=== PATIENT | male | born 1940 | race Caucasian/White ===

== ENCOUNTER 2022-11-21 09:37 | Inpatient (IN) | payer OTHER ==
[~2022-11-21] VITALS: Ht 175.3 cm; Wt 90.7 kg
[2022-11-21 09:45] VITALS: BP_SYST 144; PULSE 85; RESP 18; TEMP 98.3; O2SAT 94
[2022-11-21] MEDS ORDERED: METF-379 PO (10:00)
[2022-11-21] MEDS ORDERED: CILO100T3 PO (10:00)
[2022-11-21] MEDS ORDERED: AZIL40TA PO (10:00)
[2022-11-21] MEDS ORDERED: RIVA20TA PO (10:00)
[2022-11-21] MEDS ORDERED: LIP40 PO (10:00)
[2022-11-21 10:43] LABS: BASOPHILS % (AUTO) 0.5 % (0.0-2.0); EOSINOPHILS # (AUTO) 0.1 K/uL (0.0-0.4); EOSINOPHILS % (AUTO) 1.9 % (0.0-4.0); HEMATOCRIT 40.8 % (36-54); HEMOGLOBIN 13.6 g/dL (14.0-18.0); LYMPHOCYTES # (AUTO) 1.4 K/uL (1.0-5.5); LYMPHOCYTES % (AUTO) 22.6 % (20.5-51.5); MEAN CORPUSCULAR HEMOGLOBIN 31 pg (27-31); MEAN CORPUSCULAR HGB CONC 33 % (32-36); MEAN CORPUSCULAR VOLUME 92 fL (79.0-98.0); MONOCYTES # (AUTO) 0.6 K/uL (0.0-1.0); MONOCYTES % (AUTO) 10.2 % (1.7-9.3); NEUTROPHILS # (AUTO) 4.1 K/uL (1.8-7.7); NEUTROPHILS % (AUTO) 64.8 % (40.0-70.0); PLATELET COUNT (AUTO) 159 K/uL (130-430); RED BLOOD CELL COUNT(AUTO) 4.45 MIL/uL (4.2-6.2); RED CELL DISTRIBUTION WIDTH 14.2 % (9.0-15.0); WHITE BLOOD COUNT (AUTO) 6.3 K/uL (4.8-10.8)
[2022-11-21 11:02] LABS: INR 1.4 (0.80-1.20); PROTHROMBIN TIME 13.9 SECS (9.5-12.5)
[2022-11-21 11:11] LABS: COLOR,URINE YELLOW (YELLOW)
[2022-11-21 11:12] LABS: BILIRUBIN,URINE NEGATIVE (NEGATIVE); BLOOD, URINE TRACE (NEGATIVE); CLARITY/URINE CLEAR (CLEAR); GLUCOSE,URINE NEGATIVE (NEGATIVE); KETONES,URINE NEGATIVE (NEGATIVE); LEUKOCYTE ESTERASE ,URINE NEGATIVE (NEGATIVE); NITRITE, URINE NEGATIVE (NEGATIVE); PH,URINE 5.5 (5.0-8.0); PROTEIN URINE NEGATIVE (NEGATIVE); UROBILINOGEN,URINE 0.2 (0.2-1.0)
[2022-11-21 11:14] LABS: ALANINE AMINOTRANSFERASE 30 U/L (12-78); ALBUMIN 3.7 g/dL (3.4-4.8); ANION GAP 5 (5-15); ASPARTATE AMINOTRANSFERASE 21 U/L (10-37); CALCIUM 9.2 mg/dL (8.4-11.0); CARBON DIOXIDE 26 mmol/L (23-29); CHLORIDE 106 mmol/L (98-107); CREATINE KINASE, TOTAL 95 U/L (39-308); FREE T4 (FREE THYROXINE) 0.8 ng/dL (0.6-1.6); GLUCOSE 125 mg/dL (74-106); SODIUM SERUM 137 mmol/L (136-145); THYROID STIMULATING HORMONE 2.42 uIu/mL (0.34-4.82); TOTAL BILIRUBIN 1.1 mg/dL (0.0-1.0); TOTAL PROTEIN, SERUM 6.7 g/dL (6.4-8.3); UREA NITROGEN, BLOOD 32 mg/dL (8-21)
[2022-11-21 11:18] LABS: POTASSIUM 6.1 mmol/L (3.5-5.1)
[2022-11-21 11:23] LABS: BACTERIA,URINE None Seen /HPF (None Seen); CALCIUM OXALATE CRYSTALS,UR None Seen /HPF (None Seen); CALCIUM PHOSPHATE CRYSTALS,UR None Seen /HPF (None Seen); COARSE GRANULAR CASTS,URINE None Seen /LPF (None Seen); FINE GRANULAR CASTS,URINE None Seen /LPF (None Seen); HYALINE CASTS, URINE None Seen /LPF (None Seen); MUCUS,URINE None Seen /LPF (None Seen); OTHER CASTS, URINE None Seen /LPF (None Seen); OTHER CRYSTALS,URINE None Seen /HPF (None Seen); RBC,URINE NONE SEEN /HPF (0-3); TRICHOMONAS,URINE None Seen /HPF (None Seen); TRIPLE PHOSPHATE CRYSTAL,UR None Seen /HPF (None Seen); URIC ACID CRYSTALS,URINE None Seen /HPF (None Seen); URINE AMORPHOUS PHOSPHATES None Seen /HPF (None Seen); URINE AMORPHOUS URATE None Seen /HPF (None Seen); WAXY CASTS,URINE None Seen /LPF (None Seen); WBC,URINE NONE SEEN /HPF (0-3); YEAST,URINE None Seen /HPF (None Seen)
[2022-11-21 11:38] LABS: ACETONE, SERUM NEGATIVE (NEGATIVE)
[2022-11-21] MEDS ORDERED: NACL 0.9% 1,000 ML IV ONE (11:45)
[2022-11-21] MEDS: D5/0.45 NS 1,000 ML IV SCH (15:34)
[2022-11-21] MEDS ORDERED: ONDANSETRON HCL 4 MG/2 ML VIAL IVP PRN (16:00)
[2022-11-21] MEDS ORDERED: NALOXONE HCL 0.4 MG/ML AMP (NARCAN) IVP PRN ×2 (16:00)
[2022-11-21] MEDS ORDERED: HYDROcodone/ACETAMIN 5-325 MG TAB (NORCO/ VICODIN) PO PRN (16:00)
[2022-11-21] MEDS ORDERED: LORazepam 2 MG/ML VIAL IVP PRN (16:00)
[2022-11-21] MEDS ORDERED: ACETAMINOPHEN 325 MG TABLET PO PRN ×2 (16:00)
[2022-11-21] MEDS ORDERED: HYDROcodone/ACETAMIN 10-325 MG TAB PO PRN (16:00)
[2022-11-21 16:19] VITALS: BP_SYST 125; PULSE 89; RESP 18; TEMP 96.8
[2022-11-21 16:33] VITALS: O2SAT 96
[2022-11-21] MEDS: INSULIN REGULAR, HUMAN 100 UNITS/ML, 3 ML VIAL (humuLIN R) SUBCUT PRN (16:53)
[2022-11-21 20:00] VITALS: BP_SYST 123; PULSE 112; PULSE 85; RESP 16; TEMP 98.1; O2SAT 95
[2022-11-21] MEDS: CILOSTAZOL 50 MG TABLET (PLETAL) PO SCH (20:50)
[2022-11-21] MEDS: ATORVASTATIN 20 MG TABLET PO SCH (20:50)
[2022-11-21] MEDS ORDERED: SODIUM POLYSTYRENE SULFONATE 15 GM/60 ML UDBTL PO ONE (22:15)
[2022-11-22] VITALS (8 sets, daily range): BP systolic 99–127; PULSE 65–86; RESP 14–18; TEMP 96.7–98; O2SAT 94–97
[2022-11-22] MEDS: D5/0.45 NS 1,000 ML IV SCH ×3 (01:00→20:41)
[2022-11-22 05:47] LABS: ALANINE AMINOTRANSFERASE 25 U/L (12-78); ALBUMIN 3.5 g/dL (3.4-4.8); ANION GAP 8 (5-15); ASPARTATE AMINOTRANSFERASE 19 U/L (10-37); CALCIUM 8.5 mg/dL (8.4-11.0); CARBON DIOXIDE 23 mmol/L (23-29); CHLORIDE 107 mmol/L (98-107); CREATININE 1.04 mg/dL (0.55-1.30); GLUCOSE 122 mg/dL (74-106); POTASSIUM 4.8 mmol/L (3.5-5.1); SODIUM SERUM 138 mmol/L (136-145); TOTAL BILIRUBIN 1.1 mg/dL (0.0-1.0); TOTAL PROTEIN, SERUM 6.2 g/dL (6.4-8.3); UREA NITROGEN, BLOOD 25 mg/dL (8-21)
[2022-11-22 06:09] LABS: BASOPHILS % (AUTO) 0.4 % (0.0-2.0); EOSINOPHILS # (AUTO) 0.1 K/uL (0.0-0.4); EOSINOPHILS % (AUTO) 1.9 % (0.0-4.0); HEMATOCRIT 40.1 % (36-54); HEMOGLOBIN 13.4 g/dL (14.0-18.0); LYMPHOCYTES % (AUTO) 28.5 % (20.5-51.5); MEAN CORPUSCULAR HEMOGLOBIN 30 pg (27-31); MEAN CORPUSCULAR HGB CONC 33 % (32-36); MEAN CORPUSCULAR VOLUME 91 fL (79.0-98.0); MONOCYTES # (AUTO) 0.7 K/uL (0.0-1.0); MONOCYTES % (AUTO) 9.5 % (1.7-9.3); NEUTROPHILS # (AUTO) 4.3 K/uL (1.8-7.7); NEUTROPHILS % (AUTO) 59.7 % (40.0-70.0); PLATELET COUNT (AUTO) 168 K/uL (130-430); RED BLOOD CELL COUNT(AUTO) 4.41 MIL/uL (4.2-6.2); RED CELL DISTRIBUTION WIDTH 14.4 % (9.0-15.0); WHITE BLOOD COUNT (AUTO) 7.2 K/uL (4.8-10.8)
[2022-11-22] MEDS ORDERED: DIATR MEGLU/DIATRIZ SOD 30 ML SOLUTION PO ONE (07:29)
[2022-11-22] MEDS: CILOSTAZOL 50 MG TABLET (PLETAL) PO SCH ×2 (08:49→20:41)
[2022-11-22] MEDS: LOSARTAN POTASSIUM 50 MG TABLET (COZAAR) PO SCH (08:50)
[2022-11-22] MEDS ORDERED: AZILSARTAN MEDOXOMIL 40 MG PO SCH (09:00)
[2022-11-22] MEDS: INSULIN REGULAR, HUMAN 100 UNITS/ML, 3 ML VIAL (humuLIN R) SUBCUT PRN ×2 (11:33→20:43)
[2022-11-22] MEDS ORDERED: RIVAROXABAN 10 MG TABLET PO SCH (18:00)
[2022-11-22] MEDS ORDERED: ZOLPIDEM TARTRATE 5 MG TABLET PO PRN (19:30)
[2022-11-22] MEDS: ATORVASTATIN 20 MG TABLET PO SCH (20:41)
[2022-11-23] VITALS: BP_SYST 124; PULSE 80; RESP 16; TEMP 97.5; O2SAT 95
[2022-11-23] MEDS: D5/0.45 NS 1,000 ML IV SCH (05:00)
[2022-11-23] MEDS: INSULIN REGULAR, HUMAN 100 UNITS/ML, 3 ML VIAL (humuLIN R) SUBCUT PRN ×2 (06:48→11:37)
[2022-11-23 07:16] LABS: BASOPHILS % (AUTO) 0.4 % (0.0-2.0); EOSINOPHILS # (AUTO) 0.2 K/uL (0.0-0.4); EOSINOPHILS % (AUTO) 2.6 % (0.0-4.0); HEMATOCRIT 36.1 % (36-54); HEMOGLOBIN 12.4 g/dL (14.0-18.0); LYMPHOCYTES # (AUTO) 1.6 K/uL (1.0-5.5); LYMPHOCYTES % (AUTO) 22.6 % (20.5-51.5); MEAN CORPUSCULAR HEMOGLOBIN 32 pg (27-31); MEAN CORPUSCULAR HGB CONC 34 % (32-36); MEAN CORPUSCULAR VOLUME 92 fL (79.0-98.0); MONOCYTES # (AUTO) 0.7 K/uL (0.0-1.0); MONOCYTES % (AUTO) 9.6 % (1.7-9.3); NEUTROPHILS # (AUTO) 4.5 K/uL (1.8-7.7); NEUTROPHILS % (AUTO) 64.8 % (40.0-70.0); PLATELET COUNT (AUTO) 161 K/uL (130-430); RED BLOOD CELL COUNT(AUTO) 3.94 MIL/uL (4.2-6.2); RED CELL DISTRIBUTION WIDTH 14.2 % (9.0-15.0); WHITE BLOOD COUNT (AUTO) 6.9 K/uL (4.8-10.8)
[2022-11-23 07:30] VITALS: O2SAT 94
[2022-11-23 07:50] LABS: ANION GAP 5 (5-15); CALCIUM 8.3 mg/dL (8.4-11.0); CARBON DIOXIDE 24 mmol/L (23-29); CHLORIDE 106 mmol/L (98-107); CREATININE 1.19 mg/dL (0.55-1.30); GLUCOSE 156 mg/dL (74-106); POTASSIUM 4.8 mmol/L (3.5-5.1); SODIUM SERUM 135 mmol/L (136-145); UREA NITROGEN, BLOOD 31 mg/dL (8-21)
[2022-11-23 08:31] VITALS: BP_SYST 130; PULSE 86; RESP 18; TEMP 98.4; O2SAT 94
[2022-11-23] MEDS: LOSARTAN POTASSIUM 50 MG TABLET (COZAAR) PO SCH (09:03)
[2022-11-23] MEDS: CILOSTAZOL 50 MG TABLET (PLETAL) PO SCH (09:03)
[2022-11-23] MEDS ORDERED: L.RH1CAP PO (10:43)
[2022-11-23] MEDS ORDERED: ZOLP5TAB2 PO (10:43)
[2022-11-23] MEDS ORDERED: METF-1069 PO (10:43)
[2022-11-23 11:38] VITALS: BP_SYST 122; PULSE 83; RESP 18; TEMP 98.2; O2SAT 94
[2022-11-23 11:44] VITALS: BP_SYST 135; PULSE 86; RESP 18; TEMP 98.4; O2SAT 94
== END 2022-11-23 13:30 | disposition home or self-care (01) | DRG 394 ==
LOC: SED 09:37 → STU 11:53 → SMU 11-22 17:27
PROVIDERS: ADMIT Preventive Medicine Preventive Medicine/Occupational Environmental Medicine; ATTEND Preventive Medicine Preventive Medicine/Occupational Environmental Medicine
DX: K52.1 Toxic gastroenteritis and colitis (principal); R65.10 Systemic inflammatory response syndrome (SIRS) of non-infectious origin without acute organ dysfunction; E86.0 Dehydration; K80.20 Calculus of gallbladder without cholecystitis without obstruction; E87.5 Hyperkalemia; K57.30 Diverticulosis of large intestine without perforation or abscess without bleeding; E11.65 Type 2 diabetes mellitus with hyperglycemia; E80.6 Other disorders of bilirubin metabolism; I10 Essential (primary) hypertension; E78.5 Hyperlipidemia, unspecified; R79.89 Other specified abnormal findings of blood chemistry; Z86.73 Personal history of transient ischemic attack (TIA), and cerebral infarction without residual deficits; Z95.0 Presence of cardiac pacemaker; Z79.899 Other long term (current) drug therapy; Z79.01 Long term (current) use of anticoagulants; T50.905A Adverse effect of unspecified drugs, medicaments and biological substances, initial encounter
CPT/HCPCS: 36415; 70450-TC; 71045; 76376; 80048; 80053; 81000; 82009; 82550; 82962; 83605; 83735; 84100; 84439; 84443; 84484; 85025; 85610-TC; 85730-TC; 87045-TC; 87046; 87177; 93005; 97116-GP; 97163-GP; 99285; G0378; J1815; J7030; Q9964

== ENCOUNTER 2023-11-25 17:07 | Inpatient (IN) | payer OTHER ==
[~2023-11-25] VITALS: Ht 180.3 cm; Wt 95.3 kg
[~2023-11-25 17:07] MED LIST: AZIL40TA PO; CILO100T3 PO; L.RH1CAP PO; LIP40 PO; METF-1069 PO; RIVA20TA PO; ZOLP5TAB2 PO
[2023-11-25 17:16] VITALS: BP_SYST 125; PULSE 86; RESP 22; TEMP 96.5; O2SAT 96
[2023-11-25 18:19] LABS: BASOPHILS % (AUTO) 0.7 % (0.0-2.0); EOSINOPHILS # (AUTO) 0.1 K/uL (0.0-0.4); EOSINOPHILS % (AUTO) 1.9 % (0.0-4.0); HEMATOCRIT 38.7 % (36-54); HEMOGLOBIN 13.8 g/dL (14.0-18.0); LYMPHOCYTES # (AUTO) 1.3 K/uL (1.0-5.5); LYMPHOCYTES % (AUTO) 24.2 % (20.5-51.5); MEAN CORPUSCULAR HEMOGLOBIN 34 pg (27-31); MEAN CORPUSCULAR HGB CONC 36 % (32-36); MEAN CORPUSCULAR VOLUME 94 fL (79.0-98.0); MONOCYTES # (AUTO) 0.5 K/uL (0.0-1.0); MONOCYTES % (AUTO) 9.7 % (1.7-9.3); NEUTROPHILS # (AUTO) 3.4 K/uL (1.8-7.7); NEUTROPHILS % (AUTO) 63.5 % (40.0-70.0); PLATELET COUNT (AUTO) 157 K/uL (130-430); RED BLOOD CELL COUNT(AUTO) 4.11 MIL/uL (4.2-6.2); RED CELL DISTRIBUTION WIDTH 14.2 % (9.0-15.0); WHITE BLOOD COUNT (AUTO) 5.4 K/uL (4.8-10.8)
[2023-11-25 18:38] LABS: ANION GAP 9 (5-15); CALCIUM 8.9 mg/dL (8.4-11.0); CARBON DIOXIDE 26 mmol/L (23-29); CHLORIDE 107 mmol/L (98-107); CREATININE 1.14 mg/dL (0.55-1.30); DIGOXIN 0.4 ng/mL (0.80-2.00); GLUCOSE 142 mg/dL (74-106); SODIUM SERUM 142 mmol/L (136-145); UREA NITROGEN, BLOOD 22 mg/dL (8-21)
[2023-11-25 19:36] LABS: COVID19 ANTIGEN SOFIA FIA NEGATIVE (NEGATIVE)
[2023-11-25 19:38] LABS: INFLUENZA TYPE A Negative (NEGATIVE); INFLUENZA TYPE B NEGATIVE (NEGATIVE)
[2023-11-25] MEDS: FUROSEMIDE 40 MG/4 ML VIAL IVP ONE (20:00)
[2023-11-25] MEDS: DIGOXIN 0.5 MG/2 ML AMP IVP ONE (20:00)
[2023-11-25] MEDS ORDERED: CHOL1CAP15 (20:06)
[2023-11-25] MEDS ORDERED: POTA-197 PO (20:06)
[2023-11-25] MEDS ORDERED: BUME0.5T6 PO (20:06)
[2023-11-25] MEDS ORDERED: EMPA25TA PO (20:06)
[2023-11-25] MEDS ORDERED: ZOLP10TA2 PO (20:06)
[2023-11-25] MEDS ORDERED: METO50TA7 PO (20:06)
[2023-11-25] MEDS ORDERED: DIGO125T PO (20:06)
[2023-11-25] MEDS ORDERED: HYDR-3927 PO (20:06)
[2023-11-25] MEDS ORDERED: VERI2.5T (20:06)
[2023-11-25] MEDS ORDERED: MORPHINE 2 MG/ML INJ. SYRINGE IVP PRN ×2 (20:30)
[2023-11-25] MEDS ORDERED: POTASSIUM CHLORIDE 20 MEQ TABLET.ER PO PRN (20:30)
[2023-11-25] MEDS ORDERED: DOCUSATE SODIUM 100 MG CAPSULE PO PRN (20:30)
[2023-11-25] MEDS ORDERED: ONDANSETRON HCL 4 MG/2 ML VIAL IVP PRN (20:30)
[2023-11-25] MEDS ORDERED: MAGNESIUM SULFATE 50 ML IV PRN (20:30)
[2023-11-25] MEDS ORDERED: ACETAMINOPHEN 325 MG TABLET PO PRN (20:30)
[2023-11-25] MEDS ORDERED: MUPIROCIN 2% TOPICAL OINTMENT 22 GM NS PRN (20:30)
[2023-11-25 21:55] VITALS: BP_SYST 118; PULSE 86; RESP 18; TEMP 97.6; O2SAT 96
[2023-11-25 22:00] VITALS: O2SAT 96
[2023-11-25] MEDS: HEPARIN SODIUM,PORCINE 5,000 UNITS/ML VIAL SUBCUT SCH (22:42)
[2023-11-25 23:05] VITALS: BP_SYST 118; PULSE 85; RESP 16; TEMP 97.6; O2SAT 97
[2023-11-26 00:17] VITALS: BP_SYST 122; PULSE 85; RESP 18; TEMP 98; O2SAT 95
[2023-11-26 04:36] VITALS: BP_SYST 129; PULSE 85; RESP 16; TEMP 97.5; O2SAT 96
[2023-11-26 07:54] LABS: ANION GAP 8 (5-15); CALCIUM 9.2 mg/dL (8.4-11.0); CARBON DIOXIDE 27 mmol/L (23-29); CHLORIDE 105 mmol/L (98-107); CREATININE 1.18 mg/dL (0.55-1.30); GLUCOSE 150 mg/dL (74-106); POTASSIUM 5.1 mmol/L (3.5-5.1); SODIUM SERUM 140 mmol/L (136-145); UREA NITROGEN, BLOOD 21 mg/dL (8-21)
[2023-11-26 08:00] VITALS: BP_SYST 120; PULSE 51; PULSE 87; RESP 16; TEMP 97.3; O2SAT 98
[2023-11-26 08:57] LABS: CHOLESTEROL 190 mg/dL (<200); HDL CHOLESTEROL 48 mg/dL (>45); LIPASE 75 U/L (16-77); TRIGLYCERIDES 97 mg/dL (30-150)
[2023-11-26] MEDS: ATORVASTATIN 20 MG TABLET PO SCH (09:41)
[2023-11-26] MEDS: METOPROLOL SUCCINATE 50 MG TAB.SR.24H (TOPROL XL) PO SCH (09:43)
[2023-11-26] MEDS: DIGOXIN 0.125 MG TABLET PO SCH (09:43)
[2023-11-26] MEDS: FUROSEMIDE 20 MG/2 ML VIAL IVP SCH (09:44)
[2023-11-26 10:26] LABS: INR 1.2 (0.80-1.20); PROTHROMBIN TIME 12.4 SECS (9.5-12.5)
[2023-11-26 10:33] LABS: HEMOGLOBIN 14.2 g/dL (14.0-18.0); RED BLOOD CELL COUNT(AUTO) 2.13 MIL/uL (4.2-6.2); WHITE BLOOD COUNT (AUTO) 3.7 K/uL (4.8-10.8)
[2023-11-26 10:34] LABS: EOSINOPHILS % (AUTO) 2.5 % (0.0-4.0); HEMATOCRIT 25.1 % (36-54); LYMPHOCYTES % (AUTO) 21.9 % (20.5-51.5); MEAN CORPUSCULAR HEMOGLOBIN 67 pg (27-31); MEAN CORPUSCULAR HGB CONC 67 % (32-36); MEAN CORPUSCULAR VOLUME 118 fL (79.0-98.0); MONOCYTES % (AUTO) 9.9 % (1.7-9.3); NEUTROPHILS % (AUTO) 65.2 % (40.0-70.0); RED CELL DISTRIBUTION WIDTH 14.2 % (9.0-15.0)
[2023-11-26 10:35] LABS: BASOPHILS % (AUTO) 0.5 % (0.0-2.0); EOSINOPHILS # (AUTO) 0.1 K/uL (0.0-0.4); LYMPHOCYTES # (AUTO) 0.8 K/uL (1.0-5.5); MONOCYTES # (AUTO) 0.4 K/uL (0.0-1.0); NEUTROPHILS # (AUTO) 2.4 K/uL (1.8-7.7)
[2023-11-26] MEDS ORDERED: DEXTROSE 50% JECT 50 ML DISP.SYRIN IVP PRN (10:45)
[2023-11-26 12:00] VITALS: BP_SYST 108; PULSE 65; RESP 16; TEMP 97.7; O2SAT 98
[2023-11-26] MEDS: INSULIN LISPRO SLIDING SCALE 100 UNITS/ML, 3 ML VIAL (humaLOG) SUBCUT PRN (12:13)
[2023-11-26 14:44] LABS: PLATELET COUNT (AUTO) 161 K/uL (130-430)
[2023-11-26 16:38] VITALS: BP_SYST 102; PULSE 78; RESP 16; TEMP 97.4; O2SAT 98
[2023-11-26 16:58] LABS: BILIRUBIN,URINE NEGATIVE (NEGATIVE); BLOOD, URINE NEGATIVE (NEGATIVE); CLARITY/URINE CLEAR (CLEAR); COLOR,URINE YELLOW (YELLOW); GLUCOSE,URINE NEGATIVE (NEGATIVE); KETONES,URINE NEGATIVE (NEGATIVE); LEUKOCYTE ESTERASE ,URINE NEGATIVE (NEGATIVE); NITRITE, URINE NEGATIVE (NEGATIVE); PH,URINE 5.5 (5.0-8.0); PROTEIN URINE NEGATIVE (NEGATIVE); UROBILINOGEN,URINE 0.2 (0.2-1.0)
[2023-11-26 20:05] VITALS: BP_SYST 130; PULSE 72; RESP 16; TEMP 97.5; O2SAT 98
[2023-11-27 01:39] VITALS: BP_SYST 124; PULSE 68; RESP 16; TEMP 98.3; O2SAT 97
[2023-11-27 04:15] VITALS: PULSE 70; RESP 16; O2SAT 96
[2023-11-27 08:00] LABS: ALANINE AMINOTRANSFERASE 15 U/L (12-78); ALBUMIN 3.7 g/dL (3.4-4.8); ANION GAP 9 (5-15); ASPARTATE AMINOTRANSFERASE 17 U/L (10-37); CARBON DIOXIDE 27 mmol/L (23-29); CHLORIDE 104 mmol/L (98-107); CREATININE 1.25 mg/dL (0.55-1.30); GLUCOSE 143 mg/dL (74-106); POTASSIUM 4.7 mmol/L (3.5-5.1); SODIUM SERUM 140 mmol/L (136-145); THYROID STIMULATING HORMONE 4.92 uIu/mL (0.34-4.82); TOTAL BILIRUBIN 0.9 mg/dL (0.0-1.0); TOTAL PROTEIN, SERUM 6.6 g/dL (6.4-8.3); UREA NITROGEN, BLOOD 33 mg/dL (8-21)
[2023-11-27 08:27] VITALS: BP_SYST 121; PULSE 73; RESP 15; TEMP 98.3; O2SAT 97
[2023-11-27 09:29] LABS: BASOPHILS % (AUTO) 0.4 % (0.0-2.0); EOSINOPHILS # (AUTO) 0.2 K/uL (0.0-0.4); EOSINOPHILS % (AUTO) 2.5 % (0.0-4.0); HEMATOCRIT 41.4 % (36-54); HEMOGLOBIN 14.5 g/dL (14.0-18.0); LYMPHOCYTES # (AUTO) 1.5 K/uL (1.0-5.5); LYMPHOCYTES % (AUTO) 21.9 % (20.5-51.5); MEAN CORPUSCULAR HEMOGLOBIN 32 pg (27-31); MEAN CORPUSCULAR HGB CONC 35 % (32-36); MEAN CORPUSCULAR VOLUME 92 fL (79.0-98.0); MONOCYTES # (AUTO) 0.7 K/uL (0.0-1.0); MONOCYTES % (AUTO) 9.8 % (1.7-9.3); NEUTROPHILS # (AUTO) 4.4 K/uL (1.8-7.7); NEUTROPHILS % (AUTO) 65.4 % (40.0-70.0); PLATELET COUNT (AUTO) 170 K/uL (130-430); RED BLOOD CELL COUNT(AUTO) 4.52 MIL/uL (4.2-6.2); RED CELL DISTRIBUTION WIDTH 14.4 % (9.0-15.0)
[2023-11-27 09:36] LABS: WHITE BLOOD COUNT (AUTO) 6.8 K/uL (4.8-10.8)
[2023-11-27 11:42] VITALS: BP_SYST 123; PULSE 80; RESP 14; TEMP 97.5; O2SAT 100
== END 2023-11-27 12:15 | disposition home or self-care (01) | DRG 205 ==
LOC: SED 17:07 → STU 20:18 → SMU 11-27 10:30
PROVIDERS: ADMIT Family Medicine; ATTEND Family Medicine
PROC: 4B02XTZ Measurement of Cardiac Defibrillator, External Approach (ICD-10-PCS; principal; 2023-11-26)
DX: M94.0 Chondrocostal junction syndrome [Tietze] (principal); I50.23 Acute on chronic systolic (congestive) heart failure; I48.20 Chronic atrial fibrillation, unspecified; E11.9 Type 2 diabetes mellitus without complications; E78.5 Hyperlipidemia, unspecified; Z20.822 Contact with and (suspected) exposure to COVID-19; Z79.01 Long term (current) use of anticoagulants; Z79.84 Long term (current) use of oral hypoglycemic drugs; Z79.899 Other long term (current) drug therapy; Z86.73 Personal history of transient ischemic attack (TIA), and cerebral infarction without residual deficits; Z95.810 Presence of automatic (implantable) cardiac defibrillator; Z88.8 Allergy status to other drugs, medicaments and biological substances; Z45.02 Encounter for adjustment and management of automatic implantable cardiac defibrillator; I11.0 Hypertensive heart disease with heart failure
CPT/HCPCS: 36415; 71045; 80048; 80053; 80061; 80162; 81001; 81003; 82948; 83037; 83690; 83735; 83880; 84443; 84484; 85025; 85610; 93005; 93306; 96374; 99285; G0378; J1160; J1644; J1940